=== PATIENT | male | born 1980 | race Caucasian/White ===

== ENCOUNTER 2017-04-07 19:03 | Emergency (ER) | payer MEDICAID ==
[~2017-04-07] VITALS: Ht 177.8 cm; Wt 100.9 kg
[2017-04-07 19:05] VITALS: BP 142/89; Ht 177.8 cm; Wt 100.9 kg
== END 2017-04-07 19:30 | disposition left against medical advice (07) ==
LOC: ED 19:03
DX: H92.01 Otalgia, right ear (principal); Z53.21 Procedure and treatment not carried out due to patient leaving prior to being seen by health care provider

== ENCOUNTER 2020-01-31 13:15 | Emergency (ER) | payer MEDICAID, SELFPAY ==
[~2020-01-31] VITALS: Ht 177.8 cm; Wt 90.7 kg
[2020-01-31 13:19] VITALS: Ht 177.8 cm; Wt 90.7 kg
[2020-01-31 17:00] VITALS: BP 108/72
== END 2020-01-31 18:48 | disposition home or self-care (01) ==
LOC: ED 13:15
DX: U07.1 COVID-19 (principal); J12.89 Other viral pneumonia; E11.9 Type 2 diabetes mellitus without complications
CPT/HCPCS: 82962; Q0092; U0003-CS